=== PATIENT | female | born 1990 | race Caucasian/White ===

== ENCOUNTER 2021-12-05 11:11 | Emergency (ER) | payer OTHER ==
[~2021-12-05] VITALS: Ht 175.3 cm; Wt 99.8 kg
--- NOTE | ~2021-12-05 | EMS ---
[address] [address] EMS Patient Care Report Name: CELESTINE ESPINOZA Room #: DEP NOA Diaz#: [id number] Admission: 12/05/21 Attend Phys: Discharge: 12/05/21 Date of : [birth year] Report #: [id number] THIS REPORT FOR: //name// Report Transmitted: 12/06/2021 15:05 EMS Care Summary [place], [place]/[facility] Incident [phone] @ 12/05/2021 10:40 Incident Location [address] [place] [address] Patient CELESTINE ESPINOZA Female, 30 Years 1990 Patient Address Patient History Pulmonary Embolism, Patient Allergies No known allergies, Patient Medications None Reported, Chief Complaint ANKLE INJURY Disposition Transported No Lights/[place] Dispatch Reason Falls Transported To [facility] Narrative ARRIVED TO FIND PT SITTING ON THE GROUND WITH ASSISTANCE FROM BYSTANDERS. PT REPORTS SLIPPING ON THE ICE, FALLING TO THE GROUND AND HEARING A POP FROM HER RIGHT ANKLE, FOLLOWED BY ANKLE PAIN. PT DENIES LOSS OF CONCIOUSNESS, BLOOD THINNERS, HEAD NECK OR BACK PAIN. PT ASSISTED TO COT, SECURED WITH STRAPS X2, LOADED WITHOUT INCIDENT. ALS ASSESSMENT VITALS OBTAINED. IV ESTABLISHED, FENT [address] [address] EMS Patient Care Report Name: CELESTINE ESPINOZA Room #: [facility]P [facility] [id number] Admission: 12/05/21 Attend Phys: Discharge: 12/05/21 Date of : 88 Report #: [id number] ADMINISTERED FOR PAIN CONTROL. ENROUTE, PT REPORTS MINOR RELEIF FROM PAIN. ARRIVED. PT TAKEN INSIDE ON COT TO ER. PT MOVED TO BED WITH 4 PERSON SHEET MVOE RAILS RAISED X2 REPORT GIVEN TO NURSE, PT CARE TRANSFERRED. Initial Vitals @10:58P: 63,R: 16,BP: 139/85,Pain: 10/10,GCS: 15,SpO2: 99,Revised Trauma: 12, @11:06P: 69,R: 16,Pain: 8/10,GCS: 15,SpO2: 99, Assessments @10:47MENTAL:Time Oriented,Place Oriented,Event Oriented,Person Oriented,SKIN:HEENT:Head/Face: No Abnormalities,Neck/Airway: No Abnormalities,LUNG SOUNDS:General: No Abnormalities,ABDOMEN:General: No Abnormalities,PELVIS//GI:No Abnormalities,EXTREMITIES:Right Leg: Other,Left Arm: No Abnormalities,Right Arm: No Abnormalities,Left Leg: No Abnormalities,PULSE:Radial: 2+ Normal,NEURO:No Abnormalities, Impression Injury of Ankle Procedures @10:47 ALS Assessment Response: UnchangedSucceeded @11:00 Fentanyl - 50 Micrograms (mcg) - Intravenous (IV) Response: Improved @11:06 Fentanyl - 50 Micrograms (mcg) - Intravenous (IV) Response: Improved @10:59 IV Therapy - Saline Lock 10cc (20 ga) Site: Antecubital-Left Response: UnchangedSucceeded Timeline 10:38,Call Received 10:38,Dispatch Notified 10:40,Dispatched 10:40,En Route 10:46,On Scene 10:47,At Patient 10:47,ALS Assessment,Response: UnchangedSucceeded, 10:58,BP: 139/85 M,PULSE: 63,RR: 16 R,SPO2: 99 Ox,ETCO2: ,BG: ,PAIN: 10,GCS: 15, 10:59,IV Therapy - Saline Lock 10cc 20 ga Site: Antecubital-Left,Response: UnchangedSucceeded, 11:00,Fentanyl - 50 Micrograms (mcg) - Intravenous (IV),Response: Improved 11:01,Depart Scene 11:06,Fentanyl - 50 Micrograms (mcg) - Intravenous (IV),Response: Improved 11:06,BP: / M,PULSE: 69,RR: 16 R,SPO2: 99 Ox,ETCO2: ,BG: ,PAIN: 8,GCS: 15, [address] [address] EMS Patient Care Report Name: CELESTINE ESPINOZA Room #: DEP Joe#: [id number] Admission: 12/05/21 Attend Phys: Discharge: 12/05/21 Date of : [birth year] Report #: [id number] 11:06,At Destination 11:25,Call Closed Disclaimer [email or web address] Copyright 2021 [employer] This EMS Care Summary contains data elements from the applicable legal record (which may be displayed differently). It is designed to provide pertinent information for the following purposes: continuity of care, clinical quality, and state data reporting. The complete legal record is available to ED staff and administrators of the receiving hospital in [facility]'s Patient Tracker. All data is provided "as is."
[2021-12-05] MEDS ORDERED: NORCO7.5 PO (13:01)
[2021-12-05 13:20] VITALS: BP 124/80
== END 2021-12-05 13:22 | disposition home or self-care (01) ==
LOC: ER 11:11
DX: S82.891A Other fracture of right lower leg, initial encounter for closed fracture (principal); W00.0XXA Fall on same level due to ice and snow, initial encounter; Y93.89 Activity, other specified; Y92.89 Other specified places as the place of occurrence of the external cause; Y99.8 Other external cause status